=== PATIENT | male | born 1975 | race Asian ===

== ENCOUNTER 2024-04-30 02:48 | Emergency (ER) | payer OTHER ==
[~2024-04-30] VITALS: Ht 190.5 cm; Wt 81.0 kg
[2024-04-30 03:16] VITALS: BP 109/70; PULSE 87; RESP 18; TEMP 36.9; O2SAT 99
== END 2024-04-30 12:17 | disposition left against medical advice (07) ==
LOC: ER 02:48
DX: R19.7 Diarrhea, unspecified (principal); Z53.21 Procedure and treatment not carried out due to patient leaving prior to being seen by health care provider